=== PATIENT | female | born 1945 | race Caucasian/White ===

== ENCOUNTER → 2016-10-18 | Outpatient (CLI) | payer OTHER ==
[~2016-10-18] MED LIST: ASPI-435 PO; CALCTAB76 PO; CHOL100010 PO; CINN1CAP2 PO; GARL10007; GLIM1TAB2; IPRA0.03; LEVO1CAP; LOSA100T66; MULT-506 PO; NAPR220T40 PO; OMEG300C2 PO; RANI150C4 PO; SITA50TA5 PO
== END | disposition home or self-care (01) ==
LOC: C.LABBC 09:20
PROVIDERS: ATTEND Nurse Practitioner Family
DX: E55.9 Vitamin D deficiency, unspecified (principal)

== ENCOUNTER → 2017-02-26 | Outpatient (CLI) | payer OTHER ==
[2017-02-26 11:06] LABS: BASO % 0.9 %; BASO ABS # 0.06 K/uL (0-0.2); COMPLETE YES; EOS % 3.7 %; IG% 0.1 %; LYMPH ABS # 2.68 K/uL (1.2-3.4); MEAN CELL VOLUME 90.4 fL (80-100); MEAN CORPUSCULAR HEMOGLOBIN 30.5 pg (25-34); MEAN CORPUSCULAR HGB CONC 33.8 g/dl (32-36); MEAN PLATELET VOLUME 11.1 fL (7.4-10.4); MONO % 8.4 %; NEUT % 46.9 %; PLATELET COUNT 232 K/uL (130-400); RED BLOOD COUNT 4.98 M/uL (4.2-5.4)
[2017-02-26 11:27] LABS: ESTIMATED AVERAGE GLUCOSE 169 mg/dl; HA1C FLAG Normal (Normal)
[2017-02-26 11:30] LABS: ALT/SGPT 41 U/L (12-78); BLOOD UREA NITROGEN 22 mg/dl (7-18); BUN/CREATININE RATIO 19.5 (10-20); CALCIUM 9.6 mg/dl (8.5-10.1); CARBON DIOXIDE 29 mmol/L (21-32); CHLORIDE 104 mmol/L (98-107); CHOLESTEROL 149 mg/dl (0-200); GLUCOSE 164 mg/dl (70-99); POTASSIUM 4.3 mmol/L (3.5-5.1); SODIUM 140 mmol/L (136-145); TRIGLYCERIDES 187 mg/dl (0-150); VERY LOW DENSITY LIPOPROT CALC 37 mg/dl
[2017-02-26 11:38] LABS: ALB/GLOB RATIO 1.1 (0.9-2); ALKALINE PHOSPHATASE 82 U/L (45-117); AST/SGOT 25 U/L (15-37); HDL CHOLESTEROL 37 mg/dl; LDL CHOLESTEROL CALCULATED 75 mg/dl
== END | disposition home or self-care (01) ==
LOC: C.LABBC 07:46
PROVIDERS: ATTEND Internal Medicine Geriatric Medicine
DX: E78.5 Hyperlipidemia, unspecified (principal); M85.80 Other specified disorders of bone density and structure, unspecified site; K76.0 Fatty (change of) liver, not elsewhere classified; E11.65 Type 2 diabetes mellitus with hyperglycemia

== ENCOUNTER → 2017-03-18 | Outpatient (CLI) | payer OTHER ==
--- NOTE | 2017-03-18 11:46 | DIAGNOSTIC IMAGING REPORT ---
LEFT FOOT MIN 3 VIEWS CLINICAL HISTORY: 71 years-old Female presenting with PAIN IN LEFT HEEL. TECHNIQUE: Frontal, oblique, and lateral views of the left foot were obtained. COMPARISON: None. FINDINGS: Bone spur noted along the posterior medial aspect of the calcaneus. No acute fracture or malalignment. Incidental note made of os naviculare. Atherosclerosis noted. IMPRESSION: No acute osseous injury of the left foot. Electronically signed by: Marco Antonio Cai M.D. 03/18/2017 11:44 AM Dictated Date/Time: 03/18/2017 11:42 AM
== END | disposition home or self-care (01) ==
LOC: C.RDSM 11:30
PROVIDERS: ATTEND Family Medicine
DX: M79.672 Pain in left foot (principal)

== ENCOUNTER → 2017-04-15 | Outpatient (CLI) | payer OTHER ==
--- NOTE | 2017-04-18 13:48 | MAMMOGRAPHY REPORT ---
BILATERAL DIGITAL SCREENING MAMMOGRAM TOMOSYNTHESIS WITH CAD: 04/15/2017 CLINICAL HISTORY: Routine screening. TECHNIQUE: Breast tomosynthesis in addition to standard 2D mammography was performed. Current study was also evaluated with a Computer Aided Detection (CAD) system. COMPARISON: Comparison is made to exams dated: 04/09/2016 mammogram, 03/28/2015 mammogram, 03/25/2014 claudine mogram, 03/22/2013 mammogram, and 02/25/2012 mammogram - [facility]. BREAST COMPOSITION: There are scattered areas of fibroglandular density in both breasts. FINDINGS: No suspicious masses, calcifications, or areas of architectural distortion are noted in ei ther breast. There has been no significant interval change compared to prior exams. IMPRESSION: ACR BI-RADS CATEGORY 1: NEGATIVE There is no mammographic evidence of malignancy. A 1 year screening mammogram is recommended. The pa tient will receive written notification of the results. Approximately 10% of breast cancers are not detected with mammography. A negative mammographic report should not delay biopsy if a clinically suggestive mass is present. Dior Reeder M.D. ah/:04/15/2017 16:09:57 Cooker Casing: Ghassan Clay RT(R)(M), [facility] letter sent: Normal 1/2 BI-RADS Code: ACR BI-RADS Category 1: Negative
== END | disposition home or self-care (01) ==
LOC: C.MAMM 14:35
PROVIDERS: ATTEND Internal Medicine Geriatric Medicine
DX: Z12.31 Encounter for screening mammogram for malignant neoplasm of breast (principal)

== ENCOUNTER → 2017-07-13 | Outpatient (CLI) | payer OTHER ==
[~2017-07-13] MED LIST changes: +LOSA100T30; -LOSA100T66
[2017-07-13 11:15] LABS: ESTIMATED AVERAGE GLUCOSE 146 mg/dl; HA1C FLAG Normal (Normal)
== END | disposition home or self-care (01) ==
LOC: C.LABBC 08:16
PROVIDERS: ATTEND Nurse Practitioner Family
DX: E11.65 Type 2 diabetes mellitus with hyperglycemia (principal)

== ENCOUNTER → 2017-08-24 | Outpatient (CLI) | payer OTHER ==
[2017-08-24 13:53] LABS: HEMOGLOBIN A1C 6.6 % (4.5-5.6)
[2017-08-24 15:02] LABS: ALBUMIN 3.9 gm/dl (3.4-5.0); ALT/SGPT 42 U/L (12-78); AST/SGOT 23 U/L (15-37); BLOOD UREA NITROGEN 21 mg/dl (7-18); CALCIUM 9.1 mg/dl (8.5-10.1); CARBON DIOXIDE 32 mmol/L (21-32); CREATININE 0.96 mg/dl (0.60-1.20); GLUCOSE 106 mg/dl (70-99); POTASSIUM 4.3 mmol/L (3.5-5.1); SODIUM 139 mmol/L (136-145)
[2017-08-24 15:04] LABS: ALKALINE PHOSPHATASE 80 U/L (45-117); CHOLESTEROL 125 mg/dl (0-200); LDL CHOLESTEROL CALCULATED 45 mg/dl; TOTAL PROTEIN 6.9 gm/dl (6.4-8.2)
== END | disposition home or self-care (01) ==
LOC: C.LABBC 10:04
PROVIDERS: ATTEND Internal Medicine Geriatric Medicine
DX: E11.9 Type 2 diabetes mellitus without complications (principal); I10 Essential (primary) hypertension; M19.90 Unspecified osteoarthritis, unspecified site; K76.0 Fatty (change of) liver, not elsewhere classified

== ENCOUNTER → 2017-08-31 | Outpatient (CLI) | payer OTHER ==
--- NOTE | 2017-08-31 15:02 | DIAGNOSTIC IMAGING REPORT ---
CHEST 2 VIEWS ROUTINE CLINICAL HISTORY: R05 [id number] COMPARISON STUDY: No previous studies for comparison. FINDINGS: The cardiac and mediastinal contours are normal. There is no evidence of focal pulmonary consolidation. There is no evidence of failure. No pleural effusions are visualized.[ There is a small linear focus of atelectasis/scar at the left lung base. IMPRESSION: No active disease in the chest. Electronically signed by: Timothy Blackburn M.D. 08/31/2017 3:01 PM Dictated Date/Time: 08/31/2017 3:00 PM
== END | disposition home or self-care (01) ==
LOC: C.RADBC 14:49
PROVIDERS: ATTEND Nurse Practitioner Adult Health
DX: R05 Cough (principal)

== ENCOUNTER → 2017-11-02 | Outpatient (CLI) | payer OTHER ==
--- NOTE | 2017-11-02 15:38 | MAMMOGRAPHY REPORT ---
THIS REPORT HAS BEEN AMENDED. UNILATERAL LEFT DIGITAL DIAGNOSTIC MAMMOGRAM TOMOSYNTHESIS AND TARGETED LEFT ULTRASOUND: 11/02/2017 CLINICAL HISTORY: The patient reports a focal area of pruritus and erythema involving the left areola for approximately 1 month. She denies any nipple discharge, palpable lumps, or other complaints. TECHNIQUE: Breast tomosynthesis in addition to standard 2D mammography was performed. Left CC and M LO 2D and tomosynthesis images were obtained. COMPARISON: Comparison is made to exams dated: 04/15/2017 mammogram, 04/09/2016 mammogram, 04/15/2015 u ltrasound, 04/15/2015 mammogram, 03/28/2015 mammogram, and 03/25/2014 mammogram - [facility]. BREAST COMPOSITION: There are scattered areas of fibroglandular density in the left breast. FINDINGS: A square marker lance the site of focal pruritus pointed out by the patient in the left med ial areolar region. There are no suspicious masses, calcifications, or areas of architectural distor tion noted within the left breast. There has been no significant interval change compared to prior e xams. No clear skin thickening or nipple retraction is noted. Targeted ultrasound was performed of the area of focal pruritus and erythema pointed out by the patie nt in the left 9 to 10:00 subareolar breast. In this region there is a focal subdermal small area of hypoechoic shadowing, which is best seen on antiradial imaging. The area measures approximately 2 x 3 mm. IMPRESSION: ACR BI-RADS CATEGORY 4: SUSPICIOUS, TARGETED ULTRASOUND ACR BI-RADS CATEGORY 4: SUSPICIO US Small 2 x 3 mm subdermal area of hypoechoic shadowing in the left 9 to 10:00 subareolar breast at the site of focal pruritus pointed out by the patient. Given the clinical findings together with the ul trasound findings, biopsy is recommended for further evaluation to exclude the possibility of Paget's disease. The patient reports she is undergoing an areola biopsy of this region tomorrow which will be performed by her hand dry cleaner. We will await the pathology results to determine if any further b iopsies such as an ultrasound-guided biopsy needs to be performed. A phone call was made to the physician's office to confirm faxed results were received. The patient has been verbally notified of the results. Approximately 10% of breast cancers are not detected with mammography. A negative mammographic report should not delay biopsy if a clinically suggestive mass is present. Dior Reeder M.D. ah/:11/02/2017 10:39:06 Building Insulation Installer: Ashley Calles, [facility] letter sent: Abnormal 4/5 BI-RADS Code: ACR BI-RADS Category 4: Suspicious Ultrasound BI-RADS: ACR BI-RADS Category 4: Suspici ous AMENDMENT: 11/08/2017 Dior Reeder M.D. The pathology results from left areolar shave biopsy from [facility] were revi ewed on 11/08/2017. The pathology shows spongiotic dermatitis with eosinophils, with pathologist comm ent stating that the findings can be seen in the setting of an eczematous process such as a contact, nummular, or atopic dermatitis. The pathology results are benign although do not clearly account for the focal shadowing seen on ultrasound in the left subareolar breast. Recommend repeat ultrasound af ter the areolar biopsy site has healed; if the shadowing is still seen on the repeat ultrasound, then ultrasound guided core needle biopsy can be performed at that time. The results were discussed with the patient over the telephone on 11/08/2017, and she was tentatively scheduled for the repeat ultrasound and possible biopsy. Amended BI-RADS: ACR BI-RADS Category 0: Incomplete Evaluation: Need Additional Imaging Evaluation letter sent: [facility] 0
== END | disposition home or self-care (01) ==
LOC: C.MAMM 09:50
PROVIDERS: ATTEND Physician Assistant Medical
DX: L29.8 Other pruritus (principal)

== ENCOUNTER → 2017-11-22 | Outpatient (CLI) | payer OTHER | END | disposition home or self-care (01) | LOC: C.LABBC 07:54 | PROVIDERS: ATTEND Internal Medicine Geriatric Medicine | DX: E11.9 Type 2 diabetes mellitus without complications (principal); Z11.59 Encounter for screening for other viral diseases ==

== ENCOUNTER → 2017-12-01 | Outpatient (CLI) | payer OTHER ==
--- NOTE | 2017-12-01 10:47 | Discharge Instructions ---
Discharge Instructions Procedure Procedure Date: Dec 01, 2017. Reason for visit: Left Breast 2ND Look Us/Possible Bx. Discharge Discharge Date: Dec 01, 2017. Discharge Diagnosis: status post breast biopsy Instructions Activity Recommendations: Additional Limitations (see below) Return to School/Work: no limitations Recommended Home Diet: No Limitations Provider Instructions: ACTIVITY RECOMMENDATIONS: * No lifting, pushing, pulling or exercising the affected side for three days. RETURN TO SCHOOL/WORK: * You may return to work/school after the procedure, but do not perform any strenuous activities for 24 to 48 hours. MEDICATIONS: * Tylenol (two 325 mg) every four to six hours if needed for mild pain (if not allergic to Tylenol). DIET: * Resume previous diet. SPECIAL CARE INSTRUCTIONS: * Keep biopsy site dry for 24 hours. May shower after 24 hours, but do not soak (bathe) incision. * May remove Tegaderm (plastic patch) tomorrow AFTER showering. * Leave the steri-strips on for one week. Allow the steri-strips to fall off by themselves. If not off after one week, you may remove them. You may place a Bandaid crosswise over the strips, if desired. * Apply ice 10 minutes on and 10 minutes off as needed. * Wear a bra at bedtime to sleep more comfortably for 2-3 days. * Your referring physician should have the results after approximately 5 to 7 business days. * Call for unusual bleeding, fever, drainage, etc or if you have any questions call during normal business hours or after hours call Dr Reeder, . FOLLOW UP VISIT: Follow-up with Referring Physician as scheduled. Allergies Coded Allergies: Codeine (Unverified Allergy, Unknown, UNKNOWN, 08/20/14) Penicillins (Unverified Allergy, Unknown, HIVES, 08/20/14) Junaid Vallejo Recommendations: Call your doctor if: * Temperature above 101 degrees * Pain not relieved by pain medicine ordered * There is increased drainage or redness from any incision * You have any unanswered questions or concerns. Your Doctors Instructions noted above were prepared by provider Dior Reeder. Patient Signature Section: Patient Instructions Signature Page Triny Ochoa Patient (or Guardian) Signature/Date: I have read and understand the instructions given to me by my caregivers. Caregiver/RN/Doctor Signature/Date: The above-named patient and/or guardian has received patient instructions on this date. + Original Patient Signature Page (only) stays with chart. Please make copy for patient.
--- NOTE | 2017-12-02 07:44 | MAMMOGRAPHY REPORT ---
ULTRASOUND GUIDED BIOPSY LEFT BREAST: 12/01/2017 CLINICAL HISTORY: The patient presents for short interval follow-up of a small area of hypoechoic sha dowing in the left 9 to 10:00 subareolar breast. The patient underwent a recent areola biopsy of thi s region which showed benign pathology. Repeat ultrasound was performed of the area of the previously seen subdermal hypoechoic shadowing les ion in the left 9 to 10:00 subareolar breast. The small focal shadowing region persists on the curre nt exam in both the antiradial and radial plane. Given that the finding does persist, ultrasound-sydni ded biopsy is recommended for further evaluation to exclude the possibility of malignancy although th is could represent normal tissue. PATIENT CONSENT: The procedure, risks and benefits were discussed with the patient and informed writt en consent was obtained. A timeout was performed immediately prior to the procedure. PROCEDURE DESCRIPTION: With ultrasound guidance, aseptic technique, and lidocaine as the local anesth etic (1% lidocaine to anesthetize the skin and 1% lidocaine with epinephrine to anesthetize the deepe r tissues), the subdermal hypoechoic shadowing lesion in the left 9 to 10:00 subareolar breast was sa mpled 3 times with a 14-gauge Achieve biopsy needle. Immediately thereafter, with ultrasound guidanc e, aseptic technique, and lidocaine as the local anesthetic, a metallic localizer clip was placed at the biopsy site. Direct pressure was applied to the site immediately post procedure and hemostasis w as achieved. Postprocedure unilateral mammograms were performed to confirm clip placement. The oscar ent tolerated the procedure without complication. She was given wound care instructions. The specime ns were sent to pathology for analysis. COMPARISON: Comparison is made to exams dated: 11/02/2017 ultrasound, 11/02/2017 mammogram, 04/15/2017 mammogram, 04/09/2016 mammogram, and 04/15/2015 ultrasound - [facility]. IMPRESSION: ULTRASOUND GUIDED BIOPSY The small subdermal area of hypoechoic shadowing in the left 9 to 10:00 subareolar breast persists on the repeat ultrasound exam, therefore, ultrasound-guided biopsy was performed and a clip was placed at the biopsy site. The patient will receive pathology results from her referring provider. Dior Reeder M.D. /:12/01/2017 11:22:54 Principal Cyber Engineer: Melly HERNÁNDEZ(R)(M), [facility]
--- NOTE | 2017-12-02 07:47 | MAMMOGRAPHY REPORT ---
UNILATERAL LEFT DIGITAL DIAGNOSTIC MAMMOGRAM TOMOSYNTHESIS: 12/01/2017 CLINICAL HISTORY: Status post ultrasound-guided biopsy of the focal hypoechoic shadowing lesion in th e left subareolar breast. TECHNIQUE: Breast tomosynthesis in addition to standard 2D mammography was performed. Postprocedura l left CC and ML tomosynthesis images were obtained. COMPARISON: Comparison is made to exams dated: 11/02/2017 ultrasound, 11/02/2017 mammogram, 04/15/2017 mammogram, 04/09/2016 mammogram, 04/15/2015 ultrasound, and 04/15/2015 mammogram - [facility]. BREAST COMPOSITION: There are scattered areas of fibroglandular density in the left breast. FINDINGS: A new ribbon-shaped biopsy marker clip is seen at the site of the biopsied hypoechoic shado wing lesion in the left subareolar breast. No significant postbiopsy hematoma is seen. IMPRESSION: POST PROCEDURE IMAGING FOR MARKER PLACEMENT New biopsy marker clip status post left breast biopsy. Pathology results are pending. Approximately 10% of breast cancers are not detected with mammography. A negative mammographic report should not delay biopsy if a clinically suggestive mass is present. Dior Reeder M.D. ah/:12/01/2017 11:24:16 Boatswain'S Mate: Melly HERNÁNDEZ(Iain)(Sofya), [facility] BI-RADS Code: Post Procedure Imaging For Marker Placement
== END | disposition home or self-care (01) ==
LOC: C.MAMM 10:04
PROVIDERS: ATTEND Physician Assistant Medical
DX: R92.8 Other abnormal and inconclusive findings on diagnostic imaging of breast (principal)

== ENCOUNTER → 2018-04-17 | Outpatient (CLI) | payer OTHER ==
--- NOTE | 2018-04-18 14:48 | MAMMOGRAPHY REPORT ---
BILATERAL DIGITAL SCREENING MAMMOGRAM TOMOSYNTHESIS WITH CAD: 04/17/2018 CLINICAL HISTORY: Routine screening. Patient has no complaints. TECHNIQUE: Breast tomosynthesis in addition to standard 2D mammography was performed. Current study w as also evaluated with a Computer Aided Detection (CAD) system. COMPARISON: Comparison is made to exams dated: 12/01/2017 mammogram, 11/02/2017 mammogram, 04/15/2017 m ammogram, 04/09/2016 mammogram, 04/15/2015 mammogram, and 03/28/2015 mammogram - [facility]ter. BREAST COMPOSITION: There are scattered areas of fibroglandular density in both breasts. FINDINGS: No suspicious masses, calcifications, or areas of architectural distortion are noted in either breast . There has been no significant interval change compared to prior exams. A biopsy clip is again note d within the left subareolar breast. IMPRESSION: ACR BI-RADS CATEGORY 2: BENIGN There is no mammographic evidence of malignancy. A 1 year screening mammogram is recommended.( [id number]) The patient will receive written notification of the results. Some breast cancers are not detected with mammography. A negative mammographic report should not alek y biopsy if a clinically suggestive mass is present. Dior Reeder M.D. ah/:04/17/2018 15:46:07 Baker Operator Automatic: Ashley Calles, [facility] letter sent: Normal 1/2 BI-RADS Code: ACR BI-RADS Category 2: Benign
== END | disposition home or self-care (01) ==
LOC: C.MAMM 14:51
PROVIDERS: ATTEND Obstetrics & Gynecology
DX: Z12.31 Encounter for screening mammogram for malignant neoplasm of breast (principal)